=== PATIENT | female | born 1965 | race Caucasian/White ===

== ENCOUNTER 2024-08-03 09:34 | Emergency (ER) | payer BC ==
[~2024-08-03] VITALS: Ht 167.6 cm; Wt 75.3 kg
[2024-08-03] MEDS ORDERED: ketorolac trometh 15mg/ml vial 15 MG/ML ML IM ONE (10:10)
[2024-08-03] MEDS: ketorolac trometh 30MG/ML vial 30 MG/ML VIAL IM ONE (10:18)
[2024-08-03] MEDS: HYDROcodone/acetaminophen 10/325mg tab PO ONE (12:24)
[2024-08-03] MEDS: dexamethasone sod phosphate 10mg/ml inj IM STA (12:24)
[2024-08-03 12:26] VITALS: BP 113/72; PULSE 88; O2SAT 98
[2024-08-03] MEDS ORDERED: GABA300C PO (12:30)
[2024-08-03] MEDS ORDERED: PRED1TAB PO (12:30)
[2024-08-03] MEDS ORDERED: HYDR-3965 PO (12:30)
[2024-08-03 12:59] VITALS: RESP 16; TEMP 98
== END 2024-08-03 13:00 | disposition home or self-care (01) ==
LOC: ER 09:35
DX: M54.17 Radiculopathy, lumbosacral region (principal)
CPT/HCPCS: 72148; 96372; 99285; J1100; J1885; 99284